=== PATIENT | female | born 2000 | race Hispanic/Latino ===

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

== ENCOUNTER 2022-01-06 22:26 | Emergency (ER) | payer OTHER | END 2022-01-07 00:05 | disposition left against medical advice (07) | LOC: ERS 22:26 | DX: Z53.21 Procedure and treatment not carried out due to patient leaving prior to being seen by health care provider (principal) ==

== ENCOUNTER 2022-02-21 02:20 | Emergency (ER) | payer OTHER | END 2022-02-21 05:42 | disposition home or self-care (01) | LOC: ERS 02:20 | DX: O99.891 Other specified diseases and conditions complicating pregnancy (principal); R10.30 Lower abdominal pain, unspecified; O23.511 Infections of cervix in pregnancy, first trimester; Z3A.12 12 weeks gestation of pregnancy | CPT/HCPCS: 36415; 76815; 86900; 86901 ==

== ENCOUNTER 2022-02-25 16:35 | Emergency (ER) | payer OTHER ==
[2022-02-25] MEDS ORDERED: Acetaminophen 325 MG TAB ONE (16:55)
[2022-02-25 18:29] LABS: SARS-CoV-2 NAA Rapid Test Not Detected (NotDetected)
== END 2022-02-25 18:48 | disposition home or self-care (01) ==
LOC: ERS 16:35
DX: J10.1 Influenza due to other identified influenza virus with other respiratory manifestations (principal); Z20.822 Contact with and (suspected) exposure to COVID-19
CPT/HCPCS: 87081; 87430; 99283

== ENCOUNTER 2022-04-18 12:08 | Outpatient (CLI) | payer OTHER | END 2022-04-18 12:09 | disposition home or self-care (01) | LOC: BICULT 12:08 | PROVIDERS: ATTEND Family Medicine | DX: O09.892 Supervision of other high risk pregnancies, second trimester (principal); Z3A.20 20 weeks gestation of pregnancy | CPT/HCPCS: 76805 ==

== ENCOUNTER 2022-06-09 19:08 | Emergency (ER) | payer OTHER ==
[2022-06-09 19:45] LABS: Bacteria/HPF 1+ HPF (None Seen); Bilirubin Negative (Negative); Blood, Urine 2+ (Negative); Clarity Clear (Clear); Glucose, Urine (Dipstick) Normal (Negative); Ketone, Urine Negative (Negative); Leukocyte 500 Leu/uL (Negative); Nitrite Negative (Negative); Protein, Urine (Dipstick) Negative (Neg-Trace); RBC/HPF 0-3 HPF (0-3); Specific Gravity, Urine 1.007 (1.002-1.036); Squamous Epithelial 0-3 HPF (0-3); Urobilinogen Normal mg/dL (Less than 2); WBC/HPF 21-50 HPF (0-3); pH, Urine 6.5 (5.0-9.0)
== END 2022-06-09 20:07 | disposition home or self-care (01) ==
LOC: ERS 19:08
DX: N20.9 Urinary calculus, unspecified (principal)
CPT/HCPCS: 81003; 81015

== ENCOUNTER 2022-11-10 21:52 | Inpatient (IN) | payer OTHER ==
[2022-11-10 23:01] LABS: #Eosinphils 0.2 thou/uL (0.0-0.7); #Monocytes 0.7 thou/uL (0.11-0.59); #Neutrophils 4.3 thou/uL (1.40-6.50); %Basophils 0.4 % (0.0-1.0); %Eosinophils 2.4 % (0.0-10.0); %Monocytes 7.2 % (0.0-4.0); %Neutrophils 47.6 % (31.0-61.0); Hemoglobin 11.8 g/dL (12.0-16.0); Mean Corpuscular HGB CONC 32.5 g/dL (32.0-36.0); Mean Corpuscular Hemoglobin 27.1 pg (25.0-35.0); Mean Corpuscular Volume 83.3 fl (78.0-98.0); Mean Platelet Volume 10.9 fL (7.4-10.4); Platelet Count 290 10x3/uL (130-400); Red Blood Cell (RBC) Count 4.36 mill/uL (4.00-5.20)
[2022-11-10] MEDS ORDERED: Mag-Al 1200 mg/1200 mg/30 ML UDCUP ONE (23:01)
[2022-11-10 23:08] LABS: BHCG - Serum Negative (NEGATIVE); Pregs Control Background? CLEAR/WHITE (CLR/WHITE); Pregs Control Bar Appear? YES (CONTROL BAR)
[2022-11-10 23:32] LABS: ALT (SGPT) 56 U/L (8-55); AST (SGOT) 21 U/L (5-34); Albumin 4.2 g/dL (3.5-5.0); Alkaline Phosphatase 62 U/L (40-100); Anion Gap 12 mmol/L (10-20); BUN (Urea Nitrogen) 19 mg/dL (7.0-18.7); Bilirubin, Total 0.4 mg/dL (0.2-1.2); Calc. Creatinine Clearance 0 mL/min (70-130); Calcium 9.2 mg/dL (7.8-10.44); Carbon Dioxide 25 mmol/L (22-29); Chloride 106 mmol/L (98-107); Estimated GFR 127; Globulin 3.3 g/dL (2.4-3.5); Glucose 102 mg/dL (70-105); Lipase 24 U/L (8-78); Protein, Total 7.5 g/dL (6.0-8.3); Sodium 139 mmol/L (136-145)
[2022-11-10] MEDS ORDERED: Aspirin Chewable 81 MG TAB ONE (23:45)
[2022-11-10 23:49] LABS: CKMB 0.9 ng/mL (0-6.6)
[2022-11-11] MEDS ORDERED: Ondansetron PF 4 MG/2 ML Vial ONE (00:13)
[2022-11-11] MEDS ORDERED: fentaNYL 50 mcg/mL 1 mL Vial ONE (00:13)
[2022-11-11] MEDS ORDERED: Acetaminophen 500 MG TAB ONE (01:07)
[2022-11-11] MEDS ORDERED: Senokot S 8.6-50 MG TAB PO PRN (01:43)
[2022-11-11] MEDS ORDERED: Acetaminophen 325 MG TAB PO PRN (01:43)
[2022-11-11] MEDS ORDERED: Ondansetron ODT 4 MG TAB PO PRN (01:43)
[2022-11-11] MEDS ORDERED: Calcium Carbonate 500 MG ChewTAB PO PRN (01:43)
[2022-11-11] MEDS ORDERED: Morphine 4 MG/ML VIAL ONE (02:13)
[2022-11-11 05:46] VITALS: BMI 29.9
[2022-11-11 05:56] LABS: Anion Gap 11 mmol/L (10-20); BUN (Urea Nitrogen) 17 mg/dL (7.0-18.7); Calc. Creatinine Clearance 215 mL/min (70-130); Calcium 8.8 mg/dL (7.8-10.44); Carbon Dioxide 24 mmol/L (22-29); Chloride 104 mmol/L (98-107); Estimated GFR 133; Glucose 100 mg/dL (70-105); Potassium 3.7 mmol/L (3.5-5.1); Sodium 135 mmol/L (136-145)
[2022-11-11 06:03] LABS: Critical Call Chem Troponin I RESULT DECREASING
[2022-11-11 06:26] LABS: #Eosinphils 0.2 thou/uL (0.0-0.7); #Monocytes 0.7 thou/uL (0.11-0.59); #Neutrophils 6.5 thou/uL (1.40-6.50); %Basophils 0.3 % (0.0-1.0); %Eosinophils 1.6 % (0.0-10.0); %Lymphocytes 28.2 % (28.0-48.0); %Monocytes 6.3 % (0.0-4.0); %Neutrophils 63.2 % (31.0-61.0); Hemoglobin 11.8 g/dL (12.0-16.0); Mean Corpuscular HGB CONC 32.4 g/dL (32.0-36.0); Mean Corpuscular Hemoglobin 26.8 pg (25.0-35.0); Mean Corpuscular Volume 82.7 fl (78.0-98.0); Mean Platelet Volume 11.4 fL (7.4-10.4); Platelet Count 276 10x3/uL (130-400); White Blood Cell (WBC) Count 10.3 10x3/uL (4.8-10.8)
[2022-11-11] MEDS ORDERED: Ondansetron ODT 4 MG TAB ONE (08:17)
[2022-11-11] MEDS ORDERED: Aspirin Chewable 81 MG TAB ONE (08:17)
[2022-11-11] MEDS ORDERED: Famotidine 20 MG TAB ONE (08:17)
[2022-11-11] MEDS ORDERED: Acetaminophen 325 MG TAB ONE (08:17)
[2022-11-11] MEDS ORDERED: Famotidine 20 MG TAB PO SCH (09:00)
[2022-11-11] MEDS ORDERED: Aspirin Chewable 81 MG TAB PO SCH (09:00)
[2022-11-11] MEDS ORDERED: Ketorolac Tromethamine 30 MG/ML VIAL IVP SCH (12:15)
[2022-11-11] MEDS ORDERED: Ketorolac Tromethamine 30 MG/ML VIAL ONE (12:36)
[2022-11-11] MEDS ORDERED: Iopamidol-370 76% 500 ML MDV (1 ML CHARGE) ONE (14:11)
[2022-11-11] MEDS ORDERED: Ibuprofen 800 MG TAB PO SCH (15:45)
[2022-11-11] MEDS ORDERED: Ibuprofen 800 MG TAB ONE (16:12)
[2022-11-11 17:27] VITALS: BP 123/85; TEMP 98.7
== END 2022-11-11 17:25 | disposition home or self-care (01) | DRG 776 ==
LOC: ERS 21:52 → ERHOLD 11-11 01:22 → OBSVTOIN 11-11 01:42
PROVIDERS: ADMIT Student in an Organized Health Care Education/Training Program; ATTEND Family Medicine
DX: O99.43 Diseases of the circulatory system complicating the puerperium (principal); I31.8 Other specified diseases of pericardium; R77.8 Other specified abnormalities of plasma proteins; F41.9 Anxiety disorder, unspecified; O99.345 Other mental disorders complicating the puerperium
CPT/HCPCS: 36415; 71275; 80048; 80053; 82553; 83690; 83880; 84484; 84703; 85025; 93005; 93306; 96372; 96374; 96375; J1650; J1885; J2270; J2405; J3010; Q0162; Q9967

== ENCOUNTER 2022-11-17 16:47 | Inpatient (IN) | payer OTHER ==
[~2022-11-17 16:47] MED LIST: Iopamidol-370 76% 500 ML MDV (1 ML CHARGE) ONE
[2022-11-17 18:05] LABS: #Eosinphils 0.1 thou/uL (0.0-0.7); #Monocytes 0.3 thou/uL (0.11-0.59); #Neutrophils 4.1 thou/uL (1.40-6.50); %Basophils 0.5 % (0.0-1.0); %Eosinophils 1.1 % (0.0-10.0); %Lymphocytes 19.6 % (28.0-48.0); %Monocytes 4.8 % (0.0-4.0); %Neutrophils 73.8 % (31.0-61.0); Hematocrit 36.5 % (36.0-47.0); Hemoglobin 11.6 g/dL (12.0-16.0); Mean Corpuscular HGB CONC 31.8 g/dL (32.0-36.0); Mean Corpuscular Hemoglobin 26.8 pg (25.0-35.0); Mean Corpuscular Volume 84.3 fl (78.0-98.0); Mean Platelet Volume 10.9 fL (7.4-10.4); Platelet Count 283 10x3/uL (130-400); RBC Distribution Width 13.7 % (11.5-14.5); Red Blood Cell (RBC) Count 4.33 mill/uL (4.00-5.20); White Blood Cell (WBC) Count 5.6 10x3/uL (4.8-10.8)
[2022-11-17 18:16] LABS: BHCG - Serum Negative (NEGATIVE); Pregs Control Background? CLEAR/WHITE (CLR/WHITE); Pregs Control Bar Appear? YES (CONTROL BAR)
[2022-11-17 18:29] LABS: ALT (SGPT) 289 U/L (8-55); AST (SGOT) 126 U/L (5-34); Alkaline Phosphatase 249 U/L (40-100); Anion Gap 13 mmol/L (10-20); BUN (Urea Nitrogen) 11 mg/dL (7.0-18.7); Bilirubin, Total 4.1 mg/dL (0.2-1.2); Calc. Creatinine Clearance 0 mL/min (70-130); Calcium 9.6 mg/dL (7.8-10.44); Carbon Dioxide 24 mmol/L (22-29); Chloride 103 mmol/L (98-107); Estimated GFR 117; Globulin 3.6 g/dL (2.4-3.5); Glucose 99 mg/dL (70-105); Potassium 3.8 mmol/L (3.5-5.1); Protein, Total 7.6 g/dL (6.0-8.3); Sodium 136 mmol/L (136-145)
[2022-11-17 18:50] LABS: Troponin I 3.934 ng/mL (< 0.028)
[2022-11-17] MEDS ORDERED: Aspirin Chewable 81 MG TAB ONE (18:51)
[2022-11-17] MEDS ORDERED: Nitroglycerin 0.4 MG TAB 1 EACH ONE (19:14)
[2022-11-17] MEDS ORDERED: Morphine 4 MG/ML VIAL ONE (19:21)
[2022-11-17 19:27] LABS: Bacteria/HPF None Seen HPF (None Seen); Bilirubin 2+ (Negative); Blood, Urine 3+ (Negative); CAUTI Indications for Culture Pelvic or flank pain; Clarity Extra Turbid (Clear); Glucose, Urine (Dipstick) Normal (Negative); Ketone, Urine Trace mg/dL (Negative); Leukocyte 250 Leu/uL (Negative); Nitrite Negative (Negative); Protein, Urine (Dipstick) 50 mg/dL (Neg-Trace); RBC/HPF Greater than 50 HPF (0-3); Specific Gravity, Urine 1.024 (1.002-1.036)
[2022-11-17 19:28] LABS: Urine Culture Reflex No No
[2022-11-17 20:07] LABS: Troponin I 3.941 ng/mL (< 0.028)
[2022-11-17 20:19] LABS: INR-International Normal Ratio 0.9; PTT 24.8 sec (22.9-36.1); Prothrombin Time 12.6 sec (12.0-14.7)
[2022-11-18] MEDS ORDERED: Ondansetron PF 4 MG/2 ML Vial IVP PRN (00:54)
[2022-11-18] MEDS: Ketorolac Tromethamine 30 MG/ML VIAL IVP PRN ×2 (01:00→06:09)
[2022-11-18] MEDS: Lactated Ringer's 1,000 ML IV SCH ×2 (01:01→10:06)
[2022-11-18 01:29] VITALS: BMI 29.0
[2022-11-18 05:59] LABS: #Monocytes 0.2 thou/uL (0.11-0.59); #Neutrophils 2.9 thou/uL (1.40-6.50); %Basophils 0.9 % (0.0-1.0); %Eosinophils 0.9 % (0.0-10.0); %Lymphocytes 25.3 % (28.0-48.0); %Monocytes 5.5 % (0.0-4.0); %Neutrophils 67.2 % (31.0-61.0); Hematocrit 34.5 % (36.0-47.0); Mean Corpuscular HGB CONC 31.9 g/dL (32.0-36.0); Mean Corpuscular Volume 84.8 fl (78.0-98.0); Mean Platelet Volume 10.9 fL (7.4-10.4); Platelet Count 245 10x3/uL (130-400); RBC Distribution Width 13.9 % (11.5-14.5); Red Blood Cell (RBC) Count 4.07 mill/uL (4.00-5.20); White Blood Cell (WBC) Count 4.3 10x3/uL (4.8-10.8)
[2022-11-18 06:21] LABS: ALT (SGPT) 284 U/L (8-55); AST (SGOT) 139 U/L (5-34); Albumin 3.8 g/dL (3.5-5.0); Alkaline Phosphatase 234 U/L (40-100); Anion Gap 16 mmol/L (10-20); BUN (Urea Nitrogen) 13 mg/dL (7.0-18.7); Calc. Creatinine Clearance 190 mL/min (70-130); Calcium 8.9 mg/dL (7.8-10.44); Carbon Dioxide 19 mmol/L (22-29); Chloride 106 mmol/L (98-107); Estimated GFR 131; Glucose 97 mg/dL (70-105); Magnesium 1.8 mg/dL (1.7-2.2); Phosphorus 3.5 mg/dL (2.3-4.7); Potassium 4.1 mmol/L (3.5-5.1); Protein, Total 6.8 g/dL (6.0-8.3); Sodium 137 mmol/L (136-145)
[2022-11-18 06:35] LABS: Critical Call Chem Troponin I RESULT DECREASING; Troponin I 3.674 ng/mL (< 0.028)
[2022-11-18] MEDS ORDERED: Dextrose 50% Abboject 50 ML SYRINGE SLOW IVP PRN (07:38)
[2022-11-18] MEDS ORDERED: Ipratropium/Albuterol 3 ML NEB NEB PRN (07:38)
[2022-11-18] MEDS ORDERED: Glucagon 1 MG/ML KIT IM PRN (07:38)
[2022-11-18] MEDS ORDERED: Dextrose 5% in Water 1,000 ML IV PRN (07:38)
[2022-11-18] MEDS: Morphine 4 MG/ML VIAL SLOW IVP PRN (10:05)
[2022-11-18] MEDS: Famotidine/PF 20 mg/2ml Vial SLOW IVP SCH ×2 (10:06→20:25)
[2022-11-18] MEDS ORDERED: Piperacillin/Tazobactam 3.375 GM in Sodium Chloride 0.9% 100 ML IVPB SCH ×3 (12:45→18:00)
[2022-11-18] MEDS ORDERED: Promethazine HCl 25 MG/ML VIAL ONE (15:47)
[2022-11-18] MEDS ORDERED: fentaNYL PF 100 MCG/2 ML SYRINGE ONE (15:47)
[2022-11-18] MEDS ORDERED: Iopamidol 15 ML ONE (15:56)
[2022-11-18] MEDS ORDERED: Glucagon 1 MG/ML KIT ONE (15:56)
[2022-11-18] MEDS ORDERED: Indomethacin 50 MG SUPP ONE (15:57)
[2022-11-18] MEDS ORDERED: Rocuronium Bromide 10 MG/ML (10ML VIAL) ONE (16:05)
[2022-11-18] MEDS ORDERED: Dexamethasone 20 MG/5 ML VIAL ONE (16:05)
[2022-11-18] MEDS ORDERED: Ondansetron PF 4 MG/2 ML Vial ONE (16:05)
[2022-11-18] MEDS ORDERED: Lidocaine 1% PF 5 ML VIAL ONE (16:05)
[2022-11-18] MEDS ORDERED: ePHEDrine Sulfate 50 MG/10 ML VIAL ONE (16:05)
[2022-11-18] MEDS ORDERED: SUGAMMADEX SODIUM 200 MG/2 ML VIAL ONE (16:45)
[2022-11-18] MEDS ORDERED: Ondansetron HCl/PF 4 MG/2 ML Vial IVP PRN (16:59)
[2022-11-18] MEDS ORDERED: Promethazine HCl 25 MG/ML VIAL IM PRN (16:59)
[2022-11-18] MEDS: Piperacillin/Tazobactam 3.375 GM in Sodium Chloride 0.9% 100 ML IVPB SCH (20:24)
[2022-11-19] MEDS: Piperacillin/Tazobactam 3.375 GM in Sodium Chloride 0.9% 100 ML IVPB SCH ×2 (03:27→11:21)
[2022-11-19 04:21] VITALS: BP 128/82; TEMP 97.7
[2022-11-19 07:03] LABS: #Monocytes 0.3 thou/uL (0.11-0.59); #Neutrophils 5.4 thou/uL (1.40-6.50); %Basophils 0.4 % (0.0-1.0); %Eosinophils 0.1 % (0.0-10.0); %Lymphocytes 16.1 % (28.0-48.0); %Monocytes 4.2 % (0.0-4.0); %Neutrophils 78.6 % (31.0-61.0); Hematocrit 36.7 % (36.0-47.0); Hemoglobin 11.8 g/dL (12.0-16.0); Mean Corpuscular HGB CONC 32.2 g/dL (32.0-36.0); Mean Corpuscular Hemoglobin 27.1 pg (25.0-35.0); Mean Corpuscular Volume 84.4 fl (78.0-98.0); Mean Platelet Volume 11.1 fL (7.4-10.4); Platelet Count 329 10x3/uL (130-400); RBC Distribution Width 14.3 % (11.5-14.5); Red Blood Cell (RBC) Count 4.35 mill/uL (4.00-5.20); White Blood Cell (WBC) Count 6.9 10x3/uL (4.8-10.8)
[2022-11-19] MEDS ORDERED: fentaNYL 50 mcg/mL 1 mL Vial ONE ×5 (07:05→10:24)
[2022-11-19] MEDS ORDERED: Famotidine/PF 20 mg/2ml Vial ONE (07:05)
[2022-11-19] MEDS ORDERED: Meperidine HCl/PF 25 MG/ML VIAL ONE (07:05)
[2022-11-19] MEDS ORDERED: SUGAMMADEX SODIUM 200 MG/2 ML VIAL ONE (07:05)
[2022-11-19 07:29] LABS: ALT (SGPT) 336 U/L (8-55); AST (SGOT) 164 U/L (5-34); Alkaline Phosphatase 212 U/L (40-100); Anion Gap 14 mmol/L (10-20); BUN (Urea Nitrogen) 20 mg/dL (7.0-18.7); Bilirubin, Total 1.7 mg/dL (0.2-1.2); Calc. Creatinine Clearance 161 mL/min (70-130); Calcium 9.2 mg/dL (7.8-10.44); Carbon Dioxide 22 mmol/L (22-29); Chloride 104 mmol/L (98-107); Estimated GFR 123; Globulin 3.4 g/dL (2.4-3.5); Glucose 111 mg/dL (70-105); Potassium 3.9 mmol/L (3.5-5.1); Protein, Total 7.4 g/dL (6.0-8.3); Sodium 136 mmol/L (136-145)
[2022-11-19] MEDS ORDERED: Bupivacaine 0.25% HCL 30 ML VIAL ONE (07:58)
[2022-11-19] MEDS ORDERED: EPINEPHrine 1 MG/ML AMP ONE (07:58)
[2022-11-19] MEDS ORDERED: Lidocaine 1% PF 5 ML VIAL ONE (08:12)
[2022-11-19] MEDS ORDERED: Ketorolac Tromethamine 30 MG/ML VIAL ONE (08:12)
[2022-11-19] MEDS ORDERED: Rocuronium Bromide 10 MG/ML (10ML VIAL) ONE (08:12)
[2022-11-19] MEDS ORDERED: Metoclopramide HCl 10 MG/2 ML VIAL ONE (08:12)
[2022-11-19] MEDS ORDERED: Ondansetron PF 4 MG/2 ML Vial ONE (08:12)
[2022-11-19] MEDS ORDERED: PROPOFOL 200 MG/20 ML VIAL ONE (08:12)
[2022-11-19] MEDS ORDERED: Succinylcholine 200 MG/10 ml SYRINGE FS ONE (08:12)
[2022-11-19] MEDS ORDERED: Dexamethasone 20 MG/5 ML VIAL ONE (08:12)
[2022-11-19] MEDS ORDERED: Promethazine HCl 25 MG/ML VIAL IM PRN (09:45)
[2022-11-19] MEDS ORDERED: Ondansetron HCl/PF 4 MG/2 ML Vial IVP PRN (09:45)
[2022-11-19] MEDS ORDERED: Promethazine HCl 25 MG/ML VIAL ONE (09:52)
[2022-11-19] MEDS: Famotidine/PF 20 mg/2ml Vial SLOW IVP SCH (10:11)
[2022-11-19] MEDS ORDERED: Morphine 2 MG/ML VIAL SLOW IVP PRN (10:55)
[2022-11-19] MEDS ORDERED: Acetaminophen 325 MG TAB PO PRN (10:55)
[2022-11-19] MEDS ORDERED: Morphine 4 MG/ML VIAL SLOW IVP PRN (10:55)
[2022-11-19] MEDS ORDERED: HYDROcodone/Acetaminophen 5/325 mg Tablet PO PRN (10:55)
[2022-11-19] MEDS: Morphine 4 MG/ML VIAL SLOW IVP PRN ×2 (11:20→17:01)
[2022-11-19] MEDS: HYDROcodone/Acetaminophen 5/325 mg Tablet PO PRN ×2 (13:54→19:31)
== END 2022-11-19 19:55 | disposition home or self-care (01) | DRG 417 ==
LOC: ERS 16:47 → SURG A 23:17
PROVIDERS: ADMIT Surgery; ATTEND Surgery
PROC: 0FC68ZZ Extirpation of Matter from Left Hepatic Duct, Via Natural or Artificial Opening Endoscopic (ICD-10-PCS; 2022-11-18)
PROC: 0FC58ZZ Extirpation of Matter from Right Hepatic Duct, Via Natural or Artificial Opening Endoscopic (ICD-10-PCS; 2022-11-18)
PROC: BF101ZZ Fluoroscopy of Bile Ducts using Low Osmolar Contrast (ICD-10-PCS; 2022-11-18)
PROC: BF151ZZ Fluoroscopy of Liver using Low Osmolar Contrast (ICD-10-PCS; 2022-11-18)
PROC: 0FT44ZZ Resection of Gallbladder, Percutaneous Endoscopic Approach (ICD-10-PCS; principal; 2022-11-19)
DX: K80.66 Calculus of gallbladder and bile duct with acute and chronic cholecystitis without obstruction (principal); I21.A1 Myocardial infarction type 2; I10 Essential (primary) hypertension; F41.9 Anxiety disorder, unspecified; I08.3 Combined rheumatic disorders of mitral, aortic and tricuspid valves
CPT/HCPCS: 36415; 36416; 74177; 74330; 76705; 80053; 81001; 83735; 84100; 84484; 84703; 85025; 85610; 85730; 88304; 93005; 93306; 96374; C1889; J0171; J1100; J1611; J1885; J2175; J2270; J2405; J2543; J2550; J2704; J2765; J3010; J3490; J7120; Q9967; S0020; S0028

== ENCOUNTER 2023-09-27 11:50 | Emergency (ER) | payer MEDICAID, OTHER, SELFPAY ==
[2023-09-27 12:40] LABS: Pregnancy Test - Urine (BHCG) POSITIVE (Negative); Pregu Control Background? CLEAR/WHITE (CLR/WHITE); Pregu Control Bar Appear? YES (CONTROL BAR)
[2023-09-27 12:48] LABS: #Basophils Less than 0.03 10x3/uL (0.0-0.2); %Basophils 0.3 % (0.0-1.0); %Eosinophils 1.7 % (0.0-10.0); %Lymphocytes 30.1 % (21.0-51.0); %Monocytes 5.5 % (0.0-10.0); Hematocrit 39.6 % (36.0-47.0); Hemoglobin 13.2 g/dL (12.0-16.0); Mean Corpuscular HGB CONC 33.3 g/dL (32.0-36.0); Mean Corpuscular Hemoglobin 28.7 pg (27.0-31.0); Mean Corpuscular Volume 86.1 fL (78.0-98.0); Mean Platelet Volume 10.8 fL (7.4-10.4); Platelet Count 222 10x3/uL (130-400)
[2023-09-27 12:53] LABS: Bilirubin Negative (Negative); Blood, Urine Trace (Negative); CAUTI Indications for Culture Acute Hematuria; Clarity Clear (Clear); Glucose, Urine (Dipstick) Normal (Negative); Ketone, Urine Negative (Negative); Leukocyte 500 Leu/uL (Negative); Nitrite Negative (Negative); Protein, Urine (Dipstick) Negative (Neg-Trace); Urobilinogen Normal mg/dL (Less than 2); pH, Urine 5.5 (5.0-9.0)
[2023-09-27 12:54] LABS: Bacteria/HPF 1+ HPF (None Seen)
[2023-09-27 12:55] LABS: Urine Culture Reflex No No
[2023-09-27 13:09] LABS: ALT (SGPT) 73 U/L (8-55); AST (SGOT) 37 U/L (5-34); Albumin 3.6 g/dL (3.5-5.0); Alkaline Phosphatase 55 U/L (40-110); Anion Gap 13 mmol/L (10-20); BUN (Urea Nitrogen) 12 mg/dL (7.0-18.7); Bilirubin, Total 0.7 mg/dL (0.2-1.2); Calc. Creatinine Clearance 0 mL/min (70-130); Calcium 9.3 mg/dL (7.8-10.44); Carbon Dioxide 19 mmol/L (22-29); Chloride 110 mmol/L (98-107); Estimated GFR 129; Globulin 3.5 g/dL (2.4-3.5); Glucose 110 mg/dL (70-105); Potassium 3.5 mmol/L (3.5-5.1); Protein, Total 7.1 g/dL (6.0-8.3); Sodium 138 mmol/L (136-145)
[2023-09-27] MEDS ORDERED: Cyclobenzaprine 10 MG TAB ONE (15:19)
== END 2023-09-27 15:40 | disposition home or self-care (01) ==
LOC: ERS 11:50
DX: O99.891 Other specified diseases and conditions complicating pregnancy (principal); R82.71 Bacteriuria; Z3A.01 Less than 8 weeks gestation of pregnancy; Z55.6 Problems related to health literacy
CPT/HCPCS: 36415; 76801; 80053; 81001; 81025; 84702; 85025; 86850; 86900; 86901; 87086

== ENCOUNTER 2025-04-01 19:08 | Emergency (ER) | payer OTHER | END 2025-04-01 20:27 | disposition home or self-care (01) | LOC: ERS 19:08 | DX: S16.1XXA Strain of muscle, fascia and tendon at neck level, initial encounter (principal); V49.40XA Driver injured in collision with unspecified motor vehicles in traffic accident, initial encounter; Y92.481 Parking lot as the place of occurrence of the external cause | CPT/HCPCS: 99283 ==